=== PATIENT | male | born 1980 | race Caucasian/White ===

== ENCOUNTER 2016-06-10 12:26 | Emergency (ER) | payer OTHER ==
[~2016-06-10] VITALS: Ht 167.6 cm; Wt 56.7 kg
[2016-06-10 12:30] VITALS: BP 108/78
--- NOTE | 2016-06-10 12:47 | ED THROAT/DENTAL COMPLAINT ---
History of Present Illness General Chief Complaint: Sore Throat, Dental Pain Stated Complaint: SORE THROAT Source: patient, old records Exam Limitations: no limitations Vital Signs & Intake/Output Vital Signs & Intake/Output Vital Signs Date Time Temp Pulse Resp B/P Pulse O2 O2 Flow FiO2 Ox Delivery Rate 06/10 1302 96 06/10 1230 97.8 131 20 108/78 96 Room Air Allergies Coded Allergies: Penicillins (UNKNOWN 06/10/16) iodine (UNKNOWN 06/10/16) Uncoded Allergies: SEAFOOD (UNKNOWN 06/10/16) Reconcile Medications Azithromycin (Zithromax) 250 MG TABLET 1 DP PO AD pharyngitis 2 the first day followed by 1 for days 2-5 Methylprednisolone. (Medrol) 4 MG TAB.DS.PK 1 DP PO AD pharyngiits 6 on day 1 then reduce by one tablet daily until gone Triage Note: PT C/O SORE THROAT X 2 DAYS. STATES HE STUCK HIS FINGER IN HIS THROAT AND PRESSED ON HIS TONSIL THIS MORNING AND FELT A POP AND HAS BEEN SPITTING UP BLOOD SINCE Triage Nurses Notes Reviewed? yes Onset: Abrupt Duration: day(s): (2), constant Timing: recent history Injury Environment: home Severity: moderate Severity Numbers: 5 No Modifying Factors: none Associated Symptoms: DENIES HPI: 36-year-old male presents emergency room complaining of sore throat for the past 2 days. He denies congestion cough fever chills no sick contacts. No recent dental work. He is not taken anything for his symptoms. He states that he stuck his finger in the back of his throat and he started bleeding from his tonsil roughly 30 minutes prior to arrival that has since resolved. He denies any other complaints no difficulty swallowing or change in his voice no modifying factors or associated symptoms otherwise. Pain came on suddenly aching in nature (PATEL LUZ) Past History Travel History Traveled to [place] past 21 day No Medical History Any Pertinent Medical History? none Surgical History Surgical History: none Psychosocial History What is your primary language Nigerien Tobacco Use: Current Daily Use Daily Tobacco Use Amount/Type: => 5 Cigarettes daily ETOH Use: denies use Illicit Drug Use: marijuana Family History Hx Contributory? No (PATEL LUZ) Review of Systems Review of Systems Constitutional: Reports: see HPI. All Other Systems: Reviewed and Negative Comments Review of systems: See HPI, All other systems negative. Constitutional, no chills no fever, no malaise HEENT: No visual changes sore throat no congestion Cardiovascular: No chest pain , no palpitation Skin, no jaundice no rashes, no change in skin Respiratory: No dyspnea no cough GI: No nausea no vomiting, no diarrhea, : No dysuria No hematuria, Muscle skeletal: No joint pain, no back pain, no neck pain, Neurologic: No numbness no headache Psych: No stress . Heme/endocrine: No bruising no bleeding Immunology: No lymphadenopathy (PATEL LUZ) Physical Exam Physical Exam General Appearance: well developed/nourished, no apparent distress, alert, awake Mouth/Throat: normal mouth inspection Comments: Well-developed well-nourished patient in no apparent distress. Head/Face: Atraumatic, no maxillary/frontal sinus tenderness, no facial swelling Eyes: PERRL, EOMI, no conjunctival injection. No nystagmus Ear:External auditory canal and Tympanic membranes clear, no erythema, no FB. Nose: atraumatic.Normal inspection: No bleeding, no septal hematoma Throat: Moist mucous membranes.pharynx is erythematous, bilateral peritonsillar exudate no uvula displacement no trismus no stridor/drooling or assymetry. No swelling or edema. Neck: Supple, anterior lymphadenopathy, FROM Back: FROM Cardiovascular: Regular rate and rhythms no murmurs rubs Respiratory: Chest nontender.There were no bony deformities, no asymmetry. No respiratory distress. Patient speaking in full complete sentences. Breath sounds clear to auscultation bilaterally: NO W/R/R Extremities: full range of motion Neuro: Alert and oriented x3 Skin: Warm & dry;No appreciable rash on exposed skin Psych: Mood affect normal, normal memory normal judgment. Core Measures ACS in differential dx? No Severe Sepsis Present: No Septic Shock Present: No (PATEL LUZ) Progress Differential Diagnosis: epiglottitis, Ludwigs angina, odontogenic abscess, lew- tonsillar abscess, strep pharyngitis Plan of Care: Orders Procedure Date/time Status THROAT CULTURE W/QUICK STREP 06/10 1227 Complete I discussed with the patient at length all of their results. I had an extensive conversation regarding need for close follow up with their primary care physician this week as well as return precautions. I answered all of their questions, they feel comfortable with the plan and follow-up care. I discussed the medications that they will receive with the patient. I gave them signs and symptoms that could indicate an adverse reaction. I have advised them to limit their activities until they can see how they respond to the medication. (PATEL LUZ) Departure Departure Time of Disposition: 1253 Disposition: HOME OR SELF CARE Condition: Stable Clinical Impression Primary Impression: Strep pharyngitis Referrals: EVERARDO PENA,WENDY (PCP/Family) Additional Instructions: Z-Timothy as directed Medrol Dosepak as discussed. Saltwater gargles drink plenty fluids Tylenol Motrin as needed for pain. Your prescriptions were sent to your pharmacy. Return with any concerns Departure Forms: Customer Survey General Discharge Information Prescriptions: Current Visit Scripts Azithromycin (Zithromax) 1 DP PO AD #6 TAB 2 the first day followed by 1 for days 2-5 Methylprednisolone. (Medrol) 1 DP PO AD #1 DP 6 on day 1 then reduce by one tablet daily until gone (PATEL LUZ) PA/WHEEL BRAIDER Co-Sign Statement Statement: ED Attending supervision documentation- [] I saw and evaluated the patient. I have also reviewed all the pertinent lab results and diagnostic results. I agree with the findings and the plan of care as documented in the PA's/WHEEL BRAIDER's documentation. [X] I have reviewed the ED Record and agree with the PA's/WHEEL BRAIDER's documentation. [] Additions or exceptions (if any) to the PAs/WHEEL BRAIDER's note and plan are summarized below: [] (TIMOTHY HENRIQUEZ DO
[2016-06-10] MEDS ORDERED: MEDROL4 M2 PO (12:56)
[2016-06-10] MEDS ORDERED: ZITHROMAX250 M2 PO (12:56)
== END 2016-06-10 13:03 ==
LOC: ERH 12:26
DX: J02.0 Streptococcal pharyngitis (principal)